=== PATIENT | male | born 1990 | race Caucasian/White ===

== ENCOUNTER 2021-09-10 03:58 | Emergency (ER) | payer OTHER ==
[~2021-09-10] VITALS: Ht 180.3 cm; Wt 106.1 kg
[2021-09-10 04:10] VITALS: BP 140/90
--- NOTE | 2021-09-10 04:10 | NUR ---
TO BED AMBULATORY
--- NOTE | 2021-09-10 04:25 | NUR ---
30 YO M BIB SELF WITH ABCESS TO LEFT LEG X3WKS. PT REPORTS THAT STARTED A BRUISE AND THEN BEGAN TO CAVE IN. STATES HE HAS BEEN APPLYING HYDROGEN PEROXIDE. PT STATES HE INJECTS FENTANYL AND SMOKES METH. PT HAS BILAT SWELLING OF HANDS, FEET AND LEGS. HX:PE, HEP C RX:ELIQUIS (NONCOMPLIANT)
[2021-09-10] MEDS ORDERED: ceFAZolin 1,000 MG VIAL IM ONE (04:50)
[2021-09-10] MEDS ORDERED: CEPH-588 PO (05:26)
[2021-09-10 05:29] VITALS: BP 140/90
== END 2021-09-10 05:29 | disposition home or self-care (01) ==
LOC: MED 03:58
DX: L03.116 Cellulitis of left lower limb (principal); L97.919 Non-pressure chronic ulcer of unspecified part of right lower leg with unspecified severity
CPT/HCPCS: 90471; 90715; 96372; 99284; J0690